=== PATIENT | male | born 1980 | race Caucasian/White ===

== ENCOUNTER 2017-06-09 10:26 | Emergency (ER) | payer OTHER ==
[~2017-06-09] VITALS: Ht 175.3 cm; Wt 77.7 kg
[2017-06-09 13:42] VITALS: BP 118/77
== END 2017-06-09 13:44 | disposition home or self-care (01) ==
LOC: EME 10:26
DX: T17.928A Food in respiratory tract, part unspecified causing other injury, initial encounter (principal); X58.XXXA Exposure to other specified factors, initial encounter; R07.0 Pain in throat; R05 Cough; F79 Unspecified intellectual disabilities
CPT/HCPCS: 71020; 99281; 99284

== ENCOUNTER 2017-08-12 14:04 | Emergency (ER) | payer OTHER ==
[~2017-08-12] VITALS: Ht 170.2 cm; Wt 80.0 kg
[2017-08-12] MEDS ORDERED: PEPCID20 MG PO (16:12)
[2017-08-12] MEDS ORDERED: ZOLOFT100 MG PO (16:13)
[2017-08-12] MEDS ORDERED: DOCUSATE SODIU100 MG PO (16:13)
[2017-08-12] MEDS ORDERED: LAMOTRIGINE100 MG PO (16:14)
[2017-08-12] MEDS ORDERED: PRESERVISIO1 CAPSULE PO (16:14)
[2017-08-12] MEDS ORDERED: MIRALAX17 GM PO (16:15)
[2017-08-12] MEDS ORDERED: CRANBERRY TABL1 EACH PO (16:16)
[2017-08-12] MEDS ORDERED: GLUCERNA 1 CAL237 ML PO (16:17)
[2017-08-12] MEDS ORDERED: NORTRIPTYLINE H50 MG PO (16:17)
[2017-08-12] MEDS ORDERED: ASPIRIN325 MG PO (16:18)
[2017-08-12] MEDS ORDERED: CLONAZEPAM0.25 MG PO (16:19)
[2017-08-12] MEDS ORDERED: CLONAZEPAM0.5 MG PO (16:19)
[2017-08-12 18:08] VITALS: BP 112/70
== END 2017-08-12 18:09 | disposition home or self-care (01) ==
LOC: EME 14:04
DX: T17.928A Food in respiratory tract, part unspecified causing other injury, initial encounter (principal); K22.2 Esophageal obstruction; K21.9 Gastro-esophageal reflux disease without esophagitis; F79 Unspecified intellectual disabilities; Z99.3 Dependence on wheelchair; Z79.82 Long term (current) use of aspirin
CPT/HCPCS: 70360; 71010; 99281; 99283

== ENCOUNTER → 2017-09-05 | Outpatient (CLI) | payer OTHER ==
[~2017-09-05] VITALS: Ht 177.8 cm; Wt 81.6 kg
[~2017-09-05] MED LIST: ASPIRIN325 MG PO; CLONAZEPAM0.25 MG PO; CLONAZEPAM0.5 MG PO; CRANBERRY TABL1 EACH PO; DOCUSATE SODIU100 MG PO; FLEET ENEMA-AD118 ML PR; GLUCERNA 1 CAL237 ML PO; LAMOTRIGINE100 MG PO; LIORESAL10 MG PO; MIRALAX17 GM PO; PAMELOR50 MG PO; PEPCID20 MG PO; PRESERVISIO1 CAPSULE PO; TYLENOL REGULA325 MG PO; ZOLOFT100 MG PO
== END | disposition home or self-care (01) ==
LOC: AMB 07:00
DX: R13.12 Dysphagia, oropharyngeal phase (principal); K25.9 Gastric ulcer, unspecified as acute or chronic, without hemorrhage or perforation; K22.2 Esophageal obstruction; K21.9 Gastro-esophageal reflux disease without esophagitis; G11.4 Hereditary spastic paraplegia; R32 Unspecified urinary incontinence; Z80.0 Family history of malignant neoplasm of digestive organs; F17.290 Nicotine dependence, other tobacco product, uncomplicated; Z99.3 Dependence on wheelchair
CPT/HCPCS: 88305; 88342 TC; J2250; J3010

== ENCOUNTER → 2017-10-17 | Outpatient (CLI) | payer OTHER | END | disposition home or self-care (01) | LOC: RAD 09:00 | DX: R13.10 Dysphagia, unspecified (principal) | CPT/HCPCS: 74230; 92611 GN; G8996 GN CI; G8997 GN CI; G8998 GN CI ==

== ENCOUNTER 2018-01-07 10:06 | Inpatient (IN) | payer OTHER ==
[~2018-01-07] VITALS: Ht 175.3 cm; Wt 87.8 kg
[~2018-01-07 10:06] MED LIST changes: -CLONAZEPAM0.25 MG PO; +CLONAZEPAM0.5 M1 PO
[2018-01-07 10:46] LABS: HEMATOCRIT 48.5 % (38.0-50.0); HEMOGLOBIN 16.3 G/DL (12.5-16.6); MCH 31.4 PG (29.0-34.0); MCHC 33.6 G/DL (30.0-36.0); MCV 93.4 FL (86-99); PLATELET COUNT 171 K/uL (156-360); RBC DIS.WIDTH-CV 13.9 % (11.8-14.6); RBC DIS.WIDTH-SD 47.5 % (39-53); RED BLOOD COUNT 5.19 M/uL (4.00-5.50); WHITE BLOOD COUNT 8.3 K/uL (4.1-10.2)
[2018-01-07 11:05] LABS: CHLORIDE 104 mEq/L (99-109); SODIUM 141 mEq/L (136-147)
[2018-01-07 11:07] LABS: GLUCOSE 92 mg/dL (70-99)
[2018-01-07 11:11] LABS: CREATININE 0.8 mg/dL (0.6-1.3); GFR ESTIMATE (CALCULATED) > 59 mL/min/ (58.99-99999); UREA NITROGEN (BUN) 15 mg/dL (9-23)
[2018-01-07] MEDS ORDERED: ASPIRIN EC325 MG PO (15:36)
[2018-01-07] MEDS ORDERED: MIRALAX17 GM PO (15:38)
[2018-01-07] MEDS ORDERED: LIORESAL I500 MCG/1 IT (15:40)
[2018-01-07 16:04] VITALS: BP 123/67
[2018-01-07 19:56] VITALS: BP 110/58
[2018-01-08 00:35] VITALS: BP 96/56
[2018-01-08 04:26] VITALS: BP 98/62
[2018-01-08 07:50] VITALS: BP 101/56
[2018-01-08 09:43] LABS: CHLORIDE 108 MEQ/L (99-109); POTASSIUM 4.7 MEQ/L (3.7-5.4); SODIUM 142 MEQ/L (136-147)
[2018-01-08 09:48] LABS: CREATININE 0.6 MG/DL (0.6-1.3); GFR ESTIMATE (CALCULATED) > 59 mL/min/ (58.99-99999); GLUCOSE 98 mg/dL (70-99); UREA NITROGEN (BUN) 8 mg/dL (9-23)
[2018-01-08 10:37] LABS: BASOPHIL (%) 0.4 % (0-1); EOSINOPHIL (%) 4.4 % (0-5); EOSINOPHIL COUNT 0.3 K/uL (0-0.3); HEMATOCRIT 44.3 % (38.0-50.0); HEMOGLOBIN 14.5 G/DL (12.5-16.6); IMMATURE GRANULOCYTE (%) 0.3 % (0.0-0.7); LYMPHOCYTE (%) 9.9 % (15-42); LYMPHOCYTE COUNT 0.7 K/uL (1.0-2.8); MCH 31.1 PG (29.0-34.0); MCHC 32.7 G/DL (30.0-36.0); MCV 95.1 FL (86-99); MONOCYTE (%) 4.3 % (3-12); MONOCYTE COUNT 0.3 K/uL (0-0.8); NEUTROPHIL (%) 80.7 % (45-76); PLATELET COUNT 133 K/uL (156-360); RBC DIS.WIDTH-SD 48.8 % (39-53); RED BLOOD COUNT 4.66 M/uL (4.00-5.50); WHITE BLOOD COUNT 7.5 K/uL (4.1-10.2)
[2018-01-08 11:28] VITALS: BP 112/66
[2018-01-08 15:53] VITALS: BP 109/54
[2018-01-08 20:09] VITALS: BP 119/70
[2018-01-09 00:09] VITALS: BP 103/59
[2018-01-09 03:34] VITALS: BP 109/55
[2018-01-09 08:04] VITALS: BP 110/61
[2018-01-09 12:22] VITALS: BP 140/80
[2018-01-09 19:56] VITALS: BP 127/66
[2018-01-10 00:03] VITALS: BP 117/68
[2018-01-10 03:55] VITALS: BP 96/66
[2018-01-10 07:52] VITALS: BP 113/67
[2018-01-10 12:01] VITALS: BP 120/69
[2018-01-10 15:52] VITALS: BP 126/66
[2018-01-10 20:00] VITALS: BP 126/72
[2018-01-11 00:55] VITALS: BP 123/62
[2018-01-11 04:00] VITALS: BP 128/65
[2018-01-11 07:37] VITALS: BP 114/72
[2018-01-11 12:22] VITALS: BP 132/80
[2018-01-11] MEDS ORDERED: AMOX TR-K CLV1 EAC4 PO (13:37)
[2018-01-11] MEDS ORDERED: DUONEB 2.5-0.5 M3 ML AEROSOL (13:37)
== END 2018-01-11 16:54 | disposition home or self-care (01) | DRG 178 ==
LOC: EME 10:06 → EDOF 13:26 → 5SOUTH 13:26 → ENRESERV 13:32 → 5SOUTH 15:44
PROVIDERS: Nurse Practitioner Family; Student in an Organized Health Care Education/Training Program
DX: J69.0 Pneumonitis due to inhalation of food and vomit (principal); J18.9 Pneumonia, unspecified organism; F17.200 Nicotine dependence, unspecified, uncomplicated; F79 Unspecified intellectual disabilities; G24.9 Dystonia, unspecified; R09.02 Hypoxemia; R32 Unspecified urinary incontinence; K22.2 Esophageal obstruction; G11.4 Hereditary spastic paraplegia; R09.89 Other specified symptoms and signs involving the circulatory and respiratory systems; R51 Headache; R47.02 Dysphasia; K21.0 Gastro-esophageal reflux disease with esophagitis; R13.12 Dysphagia, oropharyngeal phase; R13.13 Dysphagia, pharyngeal phase; Z79.82 Long term (current) use of aspirin; Z79.899 Other long term (current) drug therapy
CPT/HCPCS: 71046; 80048; 83605; 85025; 85027; 87040; 87070; 87205; 87502; 92526 GN; 92610 GN; 94640; 94640 76; 94760; 94799; 99202; 99281; 99285; C1755; J0295; J2543; J3370; J7030; J7042; J7050

== ENCOUNTER 2018-06-05 14:48 | Emergency (ER) | payer OTHER, MEDICARE ==
[~2018-06-05] VITALS: Ht 180.3 cm; Wt 85.0 kg
[~2018-06-05 14:48] MED LIST changes: +AMOX TR-K CLV1 EAC4 PO; +ASPIRIN EC325 MG PO; -CLONAZEPAM0.5 M1 PO; -CRANBERRY TABL1 EACH PO; +CRANBERRY500 M2 PO; +DUONEB 2.5-0.5 M3 ML AEROSOL; +ENEMA READY TO133 ML PR; -FLEET ENEMA-AD118 ML PR; +KLONOPIN0.5 M1 PO; +LIORESAL I500 MCG/1 IT
[2018-06-05 15:50] LABS: HEMATOCRIT 48.1 % (38.0-50.0); HEMOGLOBIN 16.1 G/DL (12.5-16.6); MCH 31.5 PG (29.0-34.0); MCHC 33.5 G/DL (30.0-36.0); MCV 94.1 FL (86-99); PLATELET COUNT 181 K/uL (156-360); RBC DIS.WIDTH-CV 13.5 % (11.8-14.6); RBC DIS.WIDTH-SD 46.7 % (39-53); RED BLOOD COUNT 5.11 M/uL (4.00-5.50); WHITE BLOOD COUNT 8.8 K/uL (4.1-10.2)
[2018-06-05 16:20] LABS: ALBUMIN 4.7 g/dL (3.2-4.8); CHLORIDE 105 mEq/L (99-109); POTASSIUM 4.8 mEq/L (3.7-5.4); SODIUM 143 mEq/L (136-147)
[2018-06-05 16:23] LABS: GLUCOSE 96 mg/dL (70-99); TOTAL PROTEIN 7.8 g/dL (6.4-8.3)
[2018-06-05 16:25] LABS: TOTAL BILIRUBIN 0.4 mg/dL (0.0-1.0)
[2018-06-05 16:26] LABS: ALKALINE PHOSPHATASE 68 IU/L (3-129); CREATININE 0.9 mg/dL (0.6-1.3); GFR ESTIMATE (CALCULATED) > 59 mL/min/ (58.99-99999)
[2018-06-05 16:27] LABS: UREA NITROGEN (BUN) 14 mg/dL (9-23)
[2018-06-05 16:28] LABS: AST (GOT) 20 IU/L (2-34)
[2018-06-05 16:29] LABS: ALT (GPT) 21 IU/L (3-49)
[2018-06-05] MEDS ORDERED: FLONASE16 G1 BOTH NARES (17:52)
[2018-06-05] MEDS ORDERED: ZANTAC150 MG PO (17:52)
[2018-06-05] MEDS ORDERED: FLEET ENEMA-AD118 ML PR (17:56)
[2018-06-05] MEDS ORDERED: DAYTIME COLD-F1 EAC2 PO (17:58)
[2018-06-05 20:23] LABS: APPEARANCE SL.HAZY ((CLEAR)); BILIRUBIN NEGATIVE; BLOOD LARGE; COLOR YELLOW ((YELLOW)); GLUCOSE (STRIP) NEGATIVE; KETONES NEGATIVE; LEUKOCYTES NEGATIVE; NITRITE NEGATIVE; PROTEIN (STRIP) NEGATIVE; SPECIFIC GRAVITY 1.031 (1.000-1.030); UROBILINOGEN 0.2 MG/DL (0.2-1.0)
[2018-06-05 20:35] LABS: BACTERIA NONE SEEN /HPF; EPITHELIAL CELLS 1+ /HPF; MUCUS TRACE /LPF; RED BLOOD CELLS TNTC /HPF (0-5); UCUL ADDED? YES
[2018-06-05] MEDS ORDERED: CIPRO500 MG PO (21:34)
[2018-06-05 21:42] VITALS: BP 111/70
== END 2018-06-05 21:42 | disposition home or self-care (01) ==
LOC: EME 14:48
PROVIDERS: Nurse Practitioner Family
DX: R42 Dizziness and giddiness (principal); N39.0 Urinary tract infection, site not specified; G82.50 Quadriplegia, unspecified; G31.9 Degenerative disease of nervous system, unspecified; K21.9 Gastro-esophageal reflux disease without esophagitis; G82.20 Paraplegia, unspecified; G47.30 Sleep apnea, unspecified; F79 Unspecified intellectual disabilities; F17.200 Nicotine dependence, unspecified, uncomplicated; Z79.82 Long term (current) use of aspirin; Z96.89 Presence of other specified functional implants; Z87.19 Personal history of other diseases of the digestive system; Z87.2 Personal history of diseases of the skin and subcutaneous tissue
CPT/HCPCS: 71046; 71275; 74177; 80053; 81003; 83605; 85027; 87040; 87086; 99281; 99285; J7030

== ENCOUNTER 2018-06-05 21:51 | Emergency (ER) | payer OTHER, MEDICARE ==
[~2018-06-05] VITALS: Ht 180.3 cm; Wt 85.0 kg
[~2018-06-05 21:51] MED LIST changes: +CIPRO500 MG PO; +DAYTIME COLD-F1 EAC2 PO; +FLEET ENEMA-AD118 ML PR; +FLONASE16 G1 BOTH NARES; +ZANTAC150 MG PO
[2018-06-05 23:17] VITALS: BP 122/70
== END 2018-06-05 23:29 | disposition home or self-care (01) ==
LOC: EME 21:51
PROC: 0HQ0XZZ Repair Scalp Skin, External Approach (ICD-10-PCS; principal; 2018-06-05)
DX: S01.01XA Laceration without foreign body of scalp, initial encounter (principal); W45.0XXA Nail entering through skin, initial encounter; W22.09XA Striking against other stationary object, initial encounter
CPT/HCPCS: 99281; 99284